=== PATIENT | female | born 1970 | race Caucasian/White ===

== ENCOUNTER → 2017-04-20 | Outpatient (CLI) | payer BC, SELFPAY | PROVIDERS: Visit Provider Obstetrics & Gynecology Gynecology | DX: Z12.31 Encounter for screening mammogram for malignant neoplasm of breast (principal) | CPT/HCPCS: 77067; G0202 ==

== ENCOUNTER → 2017-05-14 13:02 | Outpatient (CLI) | payer BC, SELFPAY ==
--- NOTE | 2017-05-14 13:10 | MM_ITS ---
MM Dig mamm BI DX w/CAD, US breast RT complete, US breast LT complete COMPARISON: 04/20/2017 INDICATION: Follow-up abnormal mammogram ORDERING PHYSICIAN: Cecilia Echeverria PATIENT AGE: 47 years TECHNIQUE: Bilateral Problem-solving views performed along with bilateral breast ultrasound FINDINGS: There is dense fibroglandular tissue decreasing the sensitivity of mammography. A palpable nodule should be managed on clinical basis. RIGHT MAMMOGRAM: The asymmetric density in the immediate retroareolar region on the right appears to dissipate on the spot compression view. The density more posterior in the retroareolar region does not quite dissipate but may be due to a cyst as seen on ultrasound. RIGHT BREAST ULTRASOUND: No suspicious lesions are evident. There are multiple hypoechoic areas consistent with small cyst measuring 5 mm at 3:00, 5 mm at 8:00, and 5 mm in the retroareolar region. The retroareolar cyst may correspond to the mammographic abnormality. Small nodes in the axilla LEFT BREAST: The asymmetric density in the deep medial aspect of the left breast is difficult to reproduce. This area does appear to compress out on the spot compression view. The asymmetric density in the axillary region appear to compress out as well. Left breast ultrasound: 3 mm cyst at 3:00, 4 mm cyst at 8:00, small nodes in the axilla. IMPRESSION: No convincing evidence of malignancy. Probably benign findings. Bilateral breast cysts. Area of asymmetric density on the left probably related to fibroglandular tissue. Asymmetric density in the right retroareolar region probably related to a cyst BI-RADS Category: 3 Benign Finding Short Term Follow-up RECOMMENDED FOLLOW-UP: 6M - 6 MONTH FOLLOW-UP Recommend bilateral 6 month mammographic and sonographic follow-up in this patient with dense breast tissue and asymmetric densities. Also recommend correlation with physical exam (A letter has been sent to the patient regarding results of the study.)
== END ==
PROVIDERS: PCP Internal Medicine Adolescent Medicine; Visit Provider Obstetrics & Gynecology Gynecology
DX: R92.8 Other abnormal and inconclusive findings on diagnostic imaging of breast (principal)
CPT/HCPCS: 19083; 76641; 77066

== ENCOUNTER → 2018-09-06 09:04 | Outpatient (POV) | payer BC, SELFPAY | PROVIDERS: Visit Provider Dermatology | DX: Z00.00 Encounter for general adult medical examination without abnormal findings (principal) ==

== ENCOUNTER → 2018-10-18 09:25 | Outpatient (POV) | payer BC, SELFPAY | PROVIDERS: Visit Provider Dermatology | DX: Z00.00 Encounter for general adult medical examination without abnormal findings (principal) ==

== ENCOUNTER → 2019-04-11 09:12 | Outpatient (POV) | payer BC, SELFPAY | PROVIDERS: Visit Provider Dermatology | DX: Z00.00 Encounter for general adult medical examination without abnormal findings (principal) ==

== ENCOUNTER → 2019-10-31 09:09 | Outpatient (POV) | payer BC, SELFPAY | PROVIDERS: Visit Provider Dermatology | DX: Z00.00 Encounter for general adult medical examination without abnormal findings (principal) ==

== ENCOUNTER → 2020-12-17 10:03 | Outpatient (POV) | payer BC, SELFPAY | PROVIDERS: Visit Provider Dermatology | DX: Z00.00 Encounter for general adult medical examination without abnormal findings (principal) ==

== ENCOUNTER → 2022-03-03 08:48 | Outpatient (POV) | payer BC, SELFPAY | PROVIDERS: Visit Provider Dermatology | DX: Z00.00 Encounter for general adult medical examination without abnormal findings (principal) ==

== ENCOUNTER 2022-04-24 03:03 | Emergency (ER) | payer BC, OTHER, SELFPAY ==
[2022-04-24 03:12] VITALS: BP 135/78; PULSE 77; RESP 18; TEMP 36.5; O2SAT 98; BMI 23.5
--- NOTE | 2022-04-24 03:12 | CT_ITS ---
PROCEDURE INFORMATION: Exam: CT Abdomen And Pelvis With Contrast Exam date and time: 04/24/2022 4:07 AM Age: 51 years old Clinical indication: Abdominal pain; Flank; Left; Prior surgery; Additional info: Flank pian TECHNIQUE: Imaging protocol: Computed tomography of the abdomen and pelvis with contrast. Radiation optimization: All CT scans at this facility use at least one of these dose optimization techniques: automated exposure control; mA and/or kV adjustment per patient size (includes targeted exams where dose is matched to clinical indication); or iterative reconstruction. Contrast material: ISOVUE; Contrast volume: 75 ml; Contrast route: IV; COMPARISON: No relevant prior studies available. FINDINGS: Liver: Normal. No mass. Gallbladder and bile ducts: Normal. No calcified stones. No ductal dilation. Pancreas: Normal. No ductal dilation. Spleen: Normal. No splenomegaly. Adrenal glands: Normal. No mass. Kidneys and ureters: There is a 3 mm stone at the level of the left UPJ with moderate to high-grade left-sided hydronephrosis. A 3 mm stone is seen in the in fear your pole collecting system of the left kidney. Stomach and bowel: Moderate retained stool seen throughout the colon. Appendix: No evidence of appendicitis. Intraperitoneal space: Unremarkable. No free air. No significant fluid collection. Vasculature: Unremarkable. No abdominal aortic aneurysm. Lymph nodes: Unremarkable. No enlarged lymph nodes. Urinary bladder: Unremarkable as visualized. Reproductive: Unremarkable as visualized. Bones/joints: Unremarkable. No acute fracture. Soft tissues: Unremarkable. IMPRESSION: 1. 3 mm left UPJ stone with moderate to high-grade left-sided hydronephrosis. 2. Moderate retained stool throughout the colon.
--- NOTE | 2022-04-24 03:14 | HMH.EDABDPAI ---
Discharge Plan Disposition Patient Disposition: Home, Self-Care Condition: Good Prescriptions Prescriptions: New tamsulosin [Flomax] 0.4 mg capsule 0.4 mg PO DAILY Qty: 20 0RF cefdinir 300 mg capsule 300 mg PO Q12H 10 Days Qty: 20 0RF hydrocodone-acetaminophen 5-325 mg tablet 1 tab PO DAILY PRN (Reason: pain) Qty: 10 0RF ondansetron 4 mg tablet,disintegrating 4 mg PO DAILY Qty: 30 0RF Referrals Follow up/Referrals: Provider,Referral, MD [Primary Care Provider] - See instructions Activity Restrictions/Add. Instructions Additional Instructions/Restrictions: Please follow up with your primary care physician in 1-2 days for further management. Please call [phone] to make appointment with [facility] in [place] [address] [place]. If unable to make appointment please also call [phone] [facility] [address] for [facility]. Please take antibiotic as prescribed as well as pain meds as needed. Please drink plenty of water. Return to the ED for urinary retention, worsening pain or any other concerns. Clinical Impressions Clinical Impression: Left nephrolithiasis Instructions Patient Instructions: Kidney Stones -- Adult Print Language Print Language: Belarusian Discharge ED Provider: Ghazala Alcala Abdominal Pain HPI General Chief Complaint: Back Pain/Injury Stated Complaint: left side pain, sweats Time Seen by Provider: 04/24/22 03:14 Mode of Arrival: Ambulatory Source of Information: Patient Limitations: No Limitations History of Present Illness HPI narrative: Miss An is a 51 yo female w/ no significant PMH presenting to the ED for L flank pain and N/V which awoke her from sleeping. Patient describes a sharp (L) flank pain intermittent. She also reports multiple episodes of non bloody non bilious emesis. Normal bowel movements. NO dysuria, hematuria or urgency. Patient in usual state of health prior to going to bed. No chest pain or dyspnea. MD complaint: flank pain Onset (ago): hour(s) Consistency: intermittent Location: R flank Severity: severe Severity scale (1-10): 5 Quality: stabbing Radiation: none Migration to: no migration Relieving factors: nothing Exacerbating factors: nothing Associated symptoms: nausea and vomiting Related Data Previous Rx's Medication Instructions Recorded cefdinir 300 mg capsule 300 mg PO Q12H 10 days #20 caps 04/24/22 hydrocodone 5 mg-acetaminophen 325 1 tab PO DAILY PRN pain #10 tabs 04/24/22 mg tablet ondansetron 4 mg disintegrating 4 mg PO DAILY #30 tabs 04/24/22 tablet tamsulosin 0.4 mg capsule (Flomax) 0.4 mg PO DAILY #20 caps 04/24/22 Allergies Allergy/AdvReac Type Severity Reaction Status Date / Time Cefdinir Allergy Intermediate Rash Uncoded 04/24/22 03:17 Cephalosporin Allergy Unknown Uncoded 04/13/17 14:42 Erythromycin Allergy Unknown Uncoded 04/13/17 14:42 Penicillin Allergy Unknown Uncoded 04/13/17 14:42 PFSH PFS Disclaimer: The information contained in this section may have been updated after the patient was seen, as this information can be updated by other users. Social History Smoking Status: Never smoker alcohol intake: never current occupational status: employed Travel in the last 8 weeks: None ROS Obtained: Yes All systems reviewed & no additional complaints except as documented Physical Exam General General appearance: alert and in no apparent distress Head Head exam: atraumatic and normocephalic Eye Eye exam: Present normal appearance ENT ENT exam: Present normal exam and mucous membranes moist Neck Neck exam: Present normal inspection and full ROM Chest Chest inspection: Present normal inspection and symmetric chest wall rise Respiratory Respiratory exam: Present normal lung sounds bilaterally Cardiovascular Cardiovascular exam: Present regular rate and nor
[2022-04-24 03:45] LABS: Basophils # 0.1 K/mm3 (0-0.2); Eosinophils # 0.1 K/mm3 (0.0-0.4); Eosinophils % 2.6 % (0.1-12.0); Hemoglobin 14.1 g/dL (12.2-16.2); Lymphocytes # 1.6 K/mm3 (0.7-4.5); Mean Corpuscular HGB Conc 32.9 g/dL (31.8-35.4); Mean Corpuscular Hemoglobin 31.3 pg (27.0-31.2); Mean Corpuscular Volume 95.1 fl (81-99); Mean Platelet Volume 7.3 fl (7.4-10.4); Monocytes # 0.3 K/mm3 (0.1-1.0); Monocytes % 6.3 % (1.7-9.3); Neutrophils # 2.9 K/mm3 (1.8-7.8); Neutrophils % 58.1 % (37.0-80.0); Platelet Count 259 K/mm3 (142-424); Red Blood Count 4.53 M/mm3 (4.20-5.40); Red Cell Distribution Width 12.9 % (11.5-17.5)
[2022-04-24 03:48] LABS: Lactic Acid 1.2 mmol/L (0.7-2.1)
[2022-04-24 03:49] LABS: Alanine Aminotransferase 39 U/L (12-78); Albumin Level 4.5 g/dl (3.5-5.0); Albumin/Globulin Ratio 1.8 (1.1-1.8); Alkaline Phosphatase 61 U/L (38-126); Anion Gap 11.8 mEq/L (5-15); Aspartate Amino Transferase 40 U/L (14-36); Bilirubin,Total 0.4 mg/dl (0.2-1.3); Blood Urea Nitrogen 28 mg/dl (7-17); Calcium 9.5 mg/dl (8.4-10.2); Carbon Dioxide 30 mmol/L (22.0-30.0); Chloride 103 mmol/L (98-107); Creatinine Clearance Estimated 79 mL/min (50-200); Estimated Glomerular Filt Rate 66 ml/min (>60); GFR (African American) 80 ML/MIN (>60); Globulin 2.5 g/dL (1.3-3.2); Glucose 146 mg/dl (74-100); Lipase 161 U/L (23-300); Potassium 3.8 mmoL/L (3.5-5.1); Sodium 141 mmol/L (136-145)
[2022-04-24 04:05] LABS: Microscopic, Urine URINE MICROSCOPIC (MICROSCOPIC)
[2022-04-24 04:07] LABS: Appearance,Urine CLEAR (Clear); Bilirubin,Urine Negative (Negative); Blood, Urine 2+ (Negative); Color,Urine YELLOW (Yellow); Glucose,Urine (UA) Negative (Negative); Ketones,Urine Negative (Negative); Leukocyte Esterase,Urine TRACE (Negative); Nitrate,Urine Negative (Negative); PH,Urine 6.5 (5.0-8.5); Protein,Urine Negative (Negative); Specific Gravity, Urine 1.015 (1.005-1.030); Urobilinogen,Urine 0.2 EU/dl (0.2)
--- NOTE | 2022-04-24 04:09 | PC.NURSE ---
Pt gone to RAD
--- NOTE | 2022-04-24 04:18 | PC.NURSE ---
Pt back from RAD
[2022-04-24 04:31] LABS: Bacteria,Urine Trace /lpf; RBC,Urine 20-50 #/hpf (0-3); WBC,Urine Occasional #/hpf (0-3)
--- NOTE | 2022-04-24 04:37 | PC.NURSE ---
Pt provided with warm blanket
[2022-04-24 05:30] VITALS: BP 131/78; PULSE 67; O2SAT 100
[2022-04-24 06:41] VITALS: BP 105/68; PULSE 74; RESP 16; TEMP 36.7; O2SAT 98
== END 2022-04-24 06:56 | disposition home or self-care (01) ==
PROVIDERS: Emergency Provider Student in an Organized Health Care Education/Training Program
DX: R10.9 Unspecified abdominal pain (principal); N20.0 Calculus of kidney
CPT/HCPCS: 74177; 80053; 81001; 83605; 83690; 85025; 96361; 96374; 96375; 99285; J2405; Q9967

== ENCOUNTER 2023-10-26 11:35 | Outpatient (POV) | payer BC, OTHER, SELFPAY | END 2023-10-26 23:59 | disposition home or self-care (01) | LOC: SC 11:35 | PROVIDERS: Visit Provider Dermatology | DX: Z00.00 Encounter for general adult medical examination without abnormal findings (principal) ==

== ENCOUNTER 2024-10-31 10:08 | Outpatient (CLI) | payer BC, OTHER, SELFPAY ==
[2024-10-31 14:38] LABS: Hematocrit 42.0 % (37.0-47.0); Hemoglobin 13.4 g/dL (12.2-16.2); Immature Granulocytes % 0 %; Mean Corpuscular HGB Conc 31.9 g/dL (31.8-35.4); Mean Corpuscular Hemoglobin 29.6 pg (27.0-31.2); Mean Corpuscular Volume 92.7 fl (81-99); Nucleated Red Blood Cells % 0 %; Platelet Count 184 K/mm3 (142-424); Red Blood Count 4.53 M/mm3 (4.20-5.40); Red Cell Distribution Width-SD 43.1 fL; White Blood Count 3.4 K/mm3 (4.8-10.8)
[2024-10-31 15:14] LABS: Free T4 (Free Thyroxine) 1.18 ng/dl (0.78-2.19)
[2024-10-31 15:18] LABS: Albumin Level 4.7 g/dl (3.5-5.0); Chloride 98 mmol/L (98-107)
[2024-10-31 15:19] LABS: Potassium 4.7 mmoL/L (3.5-5.1); Sodium 139 mmol/L (136-145)
[2024-10-31 15:21] LABS: Alanine Aminotransferase 23 U/L (12-78); Albumin/Globulin Ratio 2.0 (1.1-1.8); Alkaline Phosphatase 76 U/L (38-126); Anion Gap 12.7 mEq/L (5-15); Aspartate Amino Transferase 34 U/L (14-36); Bilirubin,Total 0.3 mg/dl (0.2-1.3); Blood Urea Nitrogen 23 mg/dl (7-17); Carbon Dioxide 33 mmol/L (22.0-30.0); Creatinine,Serum 0.60 mg/dl (0.52-1.04); Estimated Glomerular Filt Rate 104 ml/min (>60); GFR (African American) 126 ML/MIN (>60); Globulin 2.4 g/dL (1.3-3.2); Total Protein,Serum 7.1 g/dl (6.3-8.2)
[2024-10-31 15:22] LABS: Calcium 9.9 mg/dl (8.4-10.2); Cholesterol 224 mg/dl (140-200); Glucose 79 mg/dl (74-100); Triglycerides 49 mg/dl (30-150)
[2024-10-31 15:30] LABS: HDL Cholesterol 108 mg/dl (40-60)
[2024-10-31 15:56] LABS: Thyroid Stimulating Hormone 0.95 uIU/mL (0.465-4.68)
[2024-10-31 16:11] LABS: Hepatitis C Ab Qual. W/ RFX NEGATIVE (Negative)
== END 2024-10-31 23:59 | disposition home or self-care (01) ==
LOC: LAB.DROPOF 11-01 10:34
PROVIDERS: PCP Internal Medicine; Visit Provider Internal Medicine
DX: Z13.29 Encounter for screening for other suspected endocrine disorder (principal); Z11.4 Encounter for screening for human immunodeficiency virus [HIV]; Z11.59 Encounter for screening for other viral diseases; Z00.00 Encounter for general adult medical examination without abnormal findings; Z13.220 Encounter for screening for lipoid disorders
CPT/HCPCS: 80053; 80061; 84439; 84443; 85025; 86803; 87389